=== PATIENT | male | born 1990 | race Caucasian/White ===

== ENCOUNTER 2021-11-30 07:28 | Emergency (ER) | payer OTHER, SELFPAY ==
--- NOTE | ~2021-11-30 | XR_ITS ---
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 No other fracture or dislocation. No periosteal reaction or bone destruction. No radiopaque soft tiss ue foreign body. IMPRESSION: Fracture of distal phalanx of great toe Reviewed, dictated and finalized at location A.
[2021-11-30 07:34] VITALS: BP 145/77; PULSE 68; RESP 18; TEMP 36.7; O2SAT 100
[2021-11-30] MEDS: TETANUS,DIPHTHERIA,AC PERTUSSIS ADULT (0.5 ML) BOOSTRIX IM (07:45)
--- NOTE | 2021-11-30 08:08 | ED.GENADULT ---
HPI - General Adult General Chief complaint: Wound/Laceration Stated complaint: L foot lac Time Seen by Provider: 11/30/21 07:37 Source: patient History of Present Illness HPI narrative: Patient presents with an injury to his left great toe. Patient ports he was mowing the lawn and tripped and his toe struck the lawnmower. Had immediate pain and bleeding so came to the ER for further evaluation. Pain is to his great toe it is achy, constant, worse with walking around, no radiation. He unsure when his last tetanus shot was. Patient feels like his toe is not. Related Data Allergies Allergy/AdvReac Type Severity Reaction Status Date / Time No Known Allergies Allergy Verified 11/30/21 07:42 Review of Systems Review of Systems: CONSTITUTIONAL: Denies fever, chills, or sweats. EYES: Denies visual changes, redness, or discharge. ENT: Denies rhinorrhea, congestion, sore throat, or otalgia. CARDIOVASCULAR: Denies chest pain, palpitations, or edema. RESPIRATORY: Denies cough or dyspnea. GASTROINTESTINAL: Denies abdominal pain, nausea, vomiting, or diarrhea. GENITOURINARY: Denies dysuria or hematuria. SKIN: Denies rash or itching. MUSCULOSKELETAL: Denies back pain, joint pain, or myalgia. NEUROLOGIC: Denies headache, numbness, dizziness, or weakness. PSYCHIATRIC: Denies anxiety or depression. All systems reviewed & are unremarkable except as noted in HPI and below Exam Narrative: GENERAL: Well-appearing, well-nourished, and in no acute distress. HEAD: Normocephalic, atraumatic. EYES: PERRLA and EOMI. ENT: Nares clear, no rhinorrhea or epistaxis. Mucous membranes moist. NECK: Supple. No masses. No JVD CHEST: Clear to auscultation. No respiratory distress. No wheezes rales or rhonchi HEART: Regular rate and rhythm. No murmur heard. Normal peripheral pulses. ABDOMEN: Soft, nontender, nondistended, normal active bowel sounds. EXTREMITIES: Normal range of motion. Multiple linear lacerations to the medial aspect of the left great toe bleeding is controlled there is diffuse tenderness sensation intact to light touch on the left great toe. Wounds do not probe to bone SKIN: Warm, dry, no rash. NEURO: No focal deficits. Alert and oriented x3. PSYCH: Normal mood and affect. Course Vital Signs Vital signs: Vital Signs Temperature 36.7 C 11/30/21 07:34 Pulse Rate 68 11/30/21 07:34 Respiratory Rate 18 11/30/21 07:34 Blood Pressure 145/77 H 11/30/21 07:34 Pulse Oximetry 100 11/30/21 07:34 Oxygen Delivery Room Air 11/30/21 07:34 Temperature 36.7 C 11/30/21 07:34 Pulse Rate 68 11/30/21 07:34 Respiratory Rate 16 11/30/21 09:19 Blood Pressure 145/77 H 11/30/21 07:34 Pulse Oximetry 100 11/30/21 07:34 Oxygen Delivery Room Air 11/30/21 07:34 Procedures Laceration Laceration 1: Date: 11/30/21 Time: 08:51 Site: lower extremity Side (If applicable): left Size (cm): 2 Description: linear Depth: simple, single layer Pre-repair: wound explored and irrigated ====== Skin Level ====== Skin layer closed with: nylon Size (cm): 4-0 Number of sutures: 4 Technique: simple, interrupted ====== Subcutaneous Layer ====== ====== Muscle Layer ====== ====== Tendon Layer ====== Laceration 2: Date: 11/30/21 Time: 08:51 Site: lower extremity Side (If applicable): left Size (cm): 2 Description: linear Depth: simple, single layer Pre-repair: wound explored and irrigated ====== Skin Level ====== Skin layer closed with: nylon Size (cm): 4-0 Number of sutures: 5 Technique: simple, interrupted ====== Subcutaneous Layer ====== ====== Muscle Layer ====== ====== Tendon Layer ====== Nerve Block Nerve Block 1: Nerve block date: 11/30/21 Nerve block time: 08:44 Time out performed: No Loc
[2021-11-30] MEDS: oxyCODONE/ACETAMINOPHEN (*CRX) 5-325 MG TABLET 1 TABLET PO (08:28)
[2021-11-30 09:19] VITALS: RESP 16
== END 2021-11-30 09:20 | disposition home or self-care (01) ==
PROVIDERS: Emergency Provider Emergency Medicine
DX: S92.425A Nondisplaced fracture of distal phalanx of left great toe, initial encounter for closed fracture (principal); S91.112A Laceration without foreign body of left great toe without damage to nail, initial encounter; Z23 Encounter for immunization; W28.XXXA Contact with powered lawn mower, initial encounter
CPT/HCPCS: 12002; 73620; 90471; 90715; 99284; A9270